=== PATIENT | female | born 1970 | race Caucasian/White ===

== ENCOUNTER 2017-08-01 10:11 | Emergency (ER) | payer BC ==
[2017-08-01] MEDS ORDERED: MAG HYDROX/ALUMINUM HYD/SIMETH 30 ML UDC PO ONE (10:33)
[2017-08-01] MEDS ORDERED: SUCRALFATE 1 G/10 ML UDC PO ONE (10:33)
[2017-08-01] MEDS ORDERED: LIDOCAINE HCL 20 ML UDC PO ONE (10:33)
[2017-08-01 10:53] LABS: Hematocrit 39.8 % (37.0-47.0); Hemoglobin 13.9 gm/dL (12.5-16.0); Mean Cell Volume 88.8 fl (78-100); Mean Corpuscular Hgb Conc 34.9 g/dl (32-36); Mean Platelet Volume 9.8 fl (6.0-9.5); Neutrophil % 71.2 % (42-75.0); Platelet Count 285 K/mm3 (150-450); Red Blood Count 4.48 M/mm3 (4.2-5.4); Red Cell Distribution Width 13.4 % (11.5-14.0); White Blood Count 8.5 K/mm3 (4.0-10.5)
[2017-08-01 10:54] LABS: Urine Appearance Clear; Urine Bacteria None Seen; Urine Bilirubin Negative (NEGATIVE); Urine Blood Negative /ul (NEGATIVE); Urine Color Yellow; Urine Ketone Negative (NEGATIVE); Urine Nitrite Negative (NEGATIVE); Urine Protein Negative (NEGATIVE); Urine RBC None Seen /hpf (0-5); Urine Specific Gravity <=1.005 SP.GR. (1.005-1.010); Urine Urobilinogen Normal (NORMAL); Urine WBC None Seen /hpf (0-5)
[2017-08-01 11:06] LABS: Prothrombin Time (Patient) 10.5 Seconds (9.0-11.0)
[2017-08-01 11:08] LABS: INR 1.05 INR (0.90-1.10); Partial Thrombolplastin Time 26.5 Seconds (24-32)
[2017-08-01 11:17] LABS: ALT 30 U/L (19-67); AST 20 U/L (0-48); Alkaline Phosphatase * 64 U/L (50-170); Anion Gap 15.7 mmol/L (6.8-13.8); Bilirubin, Total 0.7 mg/dL (0.0-1.1); Blood Urea Nitrogen 18 mg/dL (3-23); Ca. Corrected For Albumin 9.5 mg/dL (8.4-10.2); Calcium * 9.8 mg/dL (7.9-10.9); Carbon Dioxide 23.8 mmol/L (24-32.6); Chloride 101 mmol/L (97-106); Glucose * 152 mg/dL (70-110); Potassium 3.5 mmol/L (3.4-4.6); Sodium 137 mmol/L (132-142); Total Protein 8.5 gm/dL (6.2-8.2); Troponin I Less than 0.017 ng/ml (0.00-0.10)
--- NOTE | 2017-08-01 11:17 | ERNOTE ---
Chest Pain/Cardiac HPI Chief Complaint: Chest Pain Time Seen by Provider: 08/01/17 11:01 Source: patient Exam Limitations: no limitations Immunizations: IMMUNIZATION HX Immunizations Up to Date No History of Influenza Vaccine No Hx Pneumococcal Vaccination No Allergies/Adverse Reactions: Allergies morphine Allergy (Severe, Verified 08/01/17 10:29) Shortness of Breath Sulfa (Sulfonamide Antibiotics) [Sulfa(Sulfonamide Antibiotics)] Allergy (Severe , Verified 08/01/17 10:29) Hives Home Medications: HOME MEDICATIONS Chlorhexidine Gluconate 15 ml MM BID #300 mouthwash 08/01/17 [Last Taken Unknown ] Clindamycin HCl [Cleocin HCl] 300 mg PO Q6H 08/01/17 [Last Taken 08/01/17] Ondansetron [Zofran Odt] 4 mg PO Q4H PRN #10 tab 08/01/17 [Last Taken Unknown] Narrative: Patient was started on clindamycin for a tooth infection "as the antibiotic that I was on before wasn't strong enough", she took two doses yesterday. shortly after taking clindamycin today she started to have burning in her chest , vomited once, tried tums and drank a lot of mild with minimal relieve. She has not been able see a dentist yet as she doesn't have dental insurance Timing: constant Severity/Quality: moderate, burning Location: central Chest Pain Radiation: no radiation Review of Systems - Review of Systems Constitutional: Absent: recent illness, fever, malaise ENT: Absent: nose congestion, nasal drainage, sore throat Respiratory: Absent: shortness of breath, cough Cardiology: Present: See HPI, chest pain Gastrointestinal/Abdominal: Present: nausea, vomiting. Absent: diarrhea, abdominal pain Genitourinary: Present: no symptoms reported Musculoskeletal: Absent: back pain Skin: Absent: rash Neurological: Absent: headache, weakness, numbness - Patient's Past Medical History Patient History - Medical: No pertinent hx Patient History - Cardiac/Respiratory: Other Patient History - Cancer: No Hx of Cancer Patient History - Surgical Procedures: No surgical history Patient History - Other: None LMP (females 10-50): this week LMP (Calendar): 07/27/17 - Social History Living Situations: spouse Abuse History: No History of abuse Psych History: No pertinent hx Smoking Status: Never smoker Have you smoked in the past 12 months: No Do you dip or chew tobacco: No Alcohol Use: none Drug Use: none - Immunizations Immunizations Up to Date: No Hx Pneumococcal Vaccination: No History of Influenza Vaccine: No Physical Exam - Physical Exam General Appearance: Present: wd/wn, alert, mild distress, anxious Ears, Nose, Throat: Present: normal pharynx Respiratory: Present: no respiratory distress, normal breath sounds, no accessory muscle use, lungs clear, chest tenderness - lower sternum Cardiovascular/Chest: Present: regular rate, rhythm, no murmur Gastrointestinal/Abdominal: Present: normal bowel sounds, nontender, nondistended, soft Extremity Exam: Present: no edema Neurological Exam: Present: alert, oriented, normal mood/affect Skin Exam: Present: normal color, warm/dry ED Progress - Results and Orders Patient's Lab Results:: I have reviewed the patient's lab results. - Vital Signs Patient's Vital Signs:: I have reviewed the patient's vital signs. Vital Signs: Vital Signs 08/01/17 08/01/17 10:22 10:42 Temperature 36.2 C L Pulse Rate 77 81 Respiratory 24 H 15 Rate Blood Pressure 122/76 124/83 O2 Sat by Pulse 99 98 Oximetry - EKG EKG: NSR, other - no acute changes, no prior EKG read: Interp. by me - X-Ray X-Ray #1 X-Ray: chest - no acute findings Interpretation: Reviewed by me - Progress/Reassessment Chief Complaint: Chest Pain Progress Note-Subjective: 08/01/17 12:09 discussed test results with patient and , GI cocktail helped Departure Clinical Impression: Dental infection Gastritis Qualifiers: Gastritis type: unspecified gastritis Chronicity: acute Gastritis bleeding: without bleeding Qualified Code(s): K29.00 - Acute gastritis without bleeding - Departure Disposition: Home self-care Condition: Good Instructions: Gastritis, Adult, [id number], Dental Abscess, [id number] Additional Instructions: try the [facility] to get in with an oral surgeon to have your teeth taken care of Prescriptions: Chlorhexidine Gluconate 15 ml MM BID #300 mouthwash Ondansetron [Zofran Odt] 4 mg PO Q4H PRN #10 tab PRN Reason: Nausea And Vomiting
[2017-08-01] MEDS ORDERED: ONDANSETRON 4 MG TAB.RAPDIS PO ONE (12:01)
[2017-08-01] MEDS ORDERED: ONDANSETRON 4 MG TAB.RAPDIS ONE (12:07)
[2017-08-01 13:08] VITALS: BP 129/65
== END 2017-08-01 12:30 | disposition home or self-care (01) ==
LOC: ER 10:11
DX: K29.00 Acute gastritis without bleeding; K04.7 Periapical abscess without sinus